=== PATIENT | female | born 1980 | race Two or more races ===

== ENCOUNTER 2018-03-03 22:28 | Emergency (ER) | payer OTHER ==
[2018-03-03 22:39] VITALS: BP 108/67; PULSE 85; TEMP 98.6; BMI 27.4
--- NOTE | 2018-03-04 00:14 | PDOC ---
History of Present Illness - General Chief Complaint: Pain, Acute Stated Complaint: STOMACH PAIN Time Seen by Provider: 03/04/18 00:14 - History of Present Illness Initial Comments: 03/04/18 00:29 Ms. Ye is a 37 yo female w/ no pmh who presents for evaluation of abdominal rash for the last 2 days. She denies any trauma or contact to the site however reports that it is somewhat painful. The patient denies chest pain, shortness of breath, headache and dizziness. Denies fever, chills, nausea, vomit, diarrhea and constipation. Denies dysuria, frequency, urgency and hematuria. Allergies: NKDA Past History - Past Medical History Home Medications: Ambulatory Orders Cephalexin [Keflex] 250 mg PO BID #6 capsule 03/04/18 COPD: No - Surgical History Abdominal Surgery: Yes (abdominalplasty) - Suicide/Smoking/Psychosocial Hx Smoking History: Never smoked Have you smoked in the past 12 months: No Information on smoking cessation initiated: No Hx Alcohol Use: Yes ("socially") Drug/Substance Use Hx: No Review of Systems - Review of Systems Comments:: 03/04/18 00:30 GENERAL/CONSTITUTIONAL: No fever or chills. No weakness. HEAD, EYES, EARS, NOSE AND THROAT: No change in vision. No ear pain or discharge. No sore throat. CARDIOVASCULAR: No chest pain or shortness of breath RESPIRATORY: No cough, wheezing, or hemoptysis. GASTROINTESTINAL: No nausea, vomiting, diarrhea or constipation. GENITOURINARY: No dysuria, frequency, or change in urination. MUSCULOSKELETAL: No joint or muscle swelling or pain. No neck or back pain. SKIN: +Abdominal rash around umbilicus for 2 days. NEUROLOGIC: No headache, vertigo, loss of consciousness, or change in strength/ sensation. ENDOCRINE: No increased thirst. No abnormal weight change HEMATOLOGIC/LYMPHATIC: No anemia, easy bleeding, or history of blood clots. ALLERGIC/IMMUNOLOGIC: No hives or skin allergy. *Physical Exam - Vital Signs Last Vital Signs Temp Pulse Resp BP Pulse Ox 98.6 F 85 20 108/67 99 03/03/18 22:35 03/03/18 22:35 03/03/18 22:35 03/03/18 22:35 03/03/18 22:35 - Physical Exam Comments: 03/04/18 00:31 GENERAL: Awake, alert, and fully oriented, in no acute distress HEAD: No signs of trauma, normocephalic, atraumatic EYES: PERRLA, EOMI, sclera anicteric, conjunctiva clear ENT: Auricles normal inspection, hearing grossly normal, nares patent, oropharynx clear without exudates. Moist mucosa NECK: Normal ROM, supple, no lymphadenopathy, JVD, or masses LUNGS: No distress, speaks full sentences, clear to auscultation bilaterally HEART: Regular rate and rhythm, normal S1 and S2, no murmurs, rubs or gallops, peripheral pulses normal and equal bilaterally. ABDOMEN: Soft, nontender, normoactive bowel sounds. No guarding, no rebound. No masses EXTREMITIES: Normal inspection, Normal range of motion, no edema. No clubbing or cyanosis. NEUROLOGICAL: Cranial nerves II through XII grossly intact. Normal speech, normal gait, no focal sensorimotor deficits SKIN: +Periumbilical rash in approximate 4 cm circumference. Warm, Dry, normal turgor, no lesions noted. Medical Decision Making - Medical Decision Making 03/04/18 00:43 Ms. Ye is a 37 yo female w/ pmh as described who presents for evaluation of 3-4 cm diameter rash surrounding umbilicus c/w ring-worm. Patient also noted to have small area of firmness concerning for abscess at superior aspect of umbilicus. Clotrimazole cream given in ER and Rx for keflex sent to patient's pharmacy. Discharging to home. *DC/Admit/Observation/Transfer Diagnosis at time of Disposition: Ringworm - Discharge Dispostion Disposition: HOME - Prescriptions Prescriptions: Cephalexin [Keflex] 250 mg PO BID #6 capsule - Referrals Referrals: Christie Marie [Primary Care Provider] - - Patient Instructions Printed Discharge Instructions: DI for Ringworm Additional Instructions: Please take all medications as proscribed. Follow-up with PCP in 2 days if no improvement for referral to dermatology. Return to ER if any fever, chills, increased pain, or other concerning symptoms. - Post Discharge Activity
--- NOTE | 2018-03-04 00:42 | PDOC ---
Attending Attestation - HPI HPI: 03/04/18 00:44 The patient is a 37 year old female with no significant PMH who presents to the emergency department with an abdominal rash for the past two days. The patient denies using any new body washes/lotions or trauma to the area. The patient reports mild pain to the site. The patient denies chest pain, shortness of breath, headache and dizziness. Denies fever, chills, nausea, vomit, diarrhea and constipation. Denies dysuria, frequency, urgency and hematuria. Allergies: NKA Past surgical history: Abdominalplasty Social history: No reported alcohol, drug, or cigarette use. PCP: Dr. Marie - Physicial Exam PE: 03/04/18 00:43 GENERAL: Awake, alert, and fully oriented, in no acute distress LUNGS: Breath sounds equal, clear to auscultation bilaterally. No wheezes, and no crackles HEART: Regular rate and rhythm, normal S1 and S2, no murmurs, rubs or gallops ABDOMEN: Soft, nontender, normoactive bowel sounds. No guarding, no rebound. No masses EXTREMITIES: Normal range of motion, no edema. No clubbing or cyanosis. No cords, erythema, or tenderness NEUROLOGICAL: Cranial nerves II through XII grossly intact. Normal speech, normal gait SKIN: Warm, Dry, normal turgor. (+) 3cm area of surrounding erythema around the umbilicus. Area of firmness to superior aspect of the umbilicus. Non-fluctuant. <Vy Diaz - Last Filed: 03/04/18 00:43> - Resident Resident Name: Matias Apodaca - ED Attending Attestation I have performed the following: I have examined & evaluated the patient, The case was reviewed & discussed with the resident, I agree w/resident's findings & plan, Exceptions are as noted - Medical Decision Making 03/04/18 19:37 Pt treated and released <Amilcar Pérez - Last Filed: 03/04/18 19:39>
[2018-03-04] MEDS ORDERED: CLOTRIMAZOLE 1% CREAM 15 GM TUBE TP ONE (00:45)
== END 2018-03-04 00:53 | disposition home or self-care (01) ==
LOC: JER 22:28
DX: B35.4 Tinea corporis (principal)
CPT/HCPCS: 99281-25